=== PATIENT | female | born 2000 ===

== ENCOUNTER 2020-03-10 18:02 | Emergency (ER) | payer MEDICAID, OTHER ==
[~2020-03-10] VITALS: Ht 154 cm; Wt 67.2 kg
--- OUTSIDE RECORDS SUMMARY | 2020-03-10 18:08 | XMS REPORT | Continuity of Care Document ---
Author Organization Unknown Address Unknown Phone Unavailable Allergies There is no data. Medications There is no data. Problems There is no data. Procedures There is no data. Results There is no data. Encounters ACCT No. Visit Date/Time Discharge Status Pt. Type Provider Facility Loc./Unit Complaint [id number] 03/10/2020 18:04:[address] Emergency THOMAS LARES, JEANNINE Gupta [facility] ER SYNCOPE/APPROX 7 WKS PREG
--- NOTE | 2020-03-10 18:15 | NUR ---
RESTING IN BED WITH MOM.
[2020-03-10 18:46] LABS: BASOPHILS % (AUTO) 0 % (0-10); EOSINOPHILS # (AUTO) 0.1 10^3/uL (0.0-0.3); EOSINOPHILS % (AUTO) 1 % (0-10); HEMATOCRIT 35 % (35-52); HEMOGLOBIN 12.1 G/DL (11.5-16.0); LYMPHOCYTES # (AUTO) 2.2 X 10^3 (1.0-4.0); LYMPHOCYTES % (AUTO) 23 % (12-44); MEAN CORPUSCULAR HEMOGLOBIN 28 PG (25-34); MEAN CORPUSCULAR HGB CONC 34 G/DL (32-36); MEAN CORPUSCULAR VOLUME 83 FL (80-99); MEAN PLATELET VOLUME 9.6 FL (7.4-10.4); MONOCYTES # (AUTO) 0.8 X 10^3 (0.0-1.0); MONOCYTES % (AUTO) 9 % (0-12); NEUTROPHILS # (AUTO) 6.5 X 10^3 (1.8-7.8); NEUTROPHILS % (AUTO) 67 % (42-75); PLATELET COUNT 420 10^3/uL (130-400); RED CELL DISTRIBUTION WIDTH 13.7 % (10.0-14.5); WHITE BLOOD COUNT 9.7 10^3/uL (4.3-11.0)
--- NOTE | 2020-03-10 18:51 | NUR ---
REPORT TO ANTHONY
--- NOTE | 2020-03-10 18:58 | ED Syncope ---
General Chief Complaint: Trauma-Non Activation Stated Complaint: SYNCOPE/APPROX 7 WKS PREG Nursing Triage Note: TO ED PER EMS WORKS AT [employer] WAS FOUND FACE DOWN ON FLOOR BY STAFF. ON ARRIVAL UKRAINIAN SPEAKING EMT REPORTS SHE IS APX 7 WEEKS PREG C/O LOW ABD PAIN ON ANTIBIOTIC. SHE DOES REPORT IT MCCORMICK WHEN SHE PEES. C COLLAR IN PLACE. Source of Information: Patient Exam Limitations: No Limitations History of Present Illness Date Seen by Provider: Mar 10, 2020 Time Seen by Provider: 18:10 Initial Comments Here with report of syncopal episode while at work. She is apparently found face down on the floor by staff at work at [email or web address]. She is approximately 7 weeks and complaining of low abdominal pain on the left that is intermittently cramping. She was seen within the last day or 2 at a facility in [place] and found to have urinary tract infection and started on antibiotics. She has not had an ultrasound. She has one previous in which resulted in miscarriage. She has had vaginal spotting over the last 2 days. Does complain of dysuria. She was awake and alert on EMS arrival. Normal vital signs noted by EMS. Arrives in c-collar and complains of left lateral neck/face pain. No obvious swelling or deformity. Timing/Prior Episodes: Single Episode Today (back) Symptoms Prior to Episode: Pain (lower abdomen) Precipitating Factors: Other (abdominal pain) Loss of Consciousness: Unsure (seconds to minutes) Current Symptoms: No Chest Pain, No Headache, No Loss of Bladder Control, No Loss of Bowel Control, No Nausea, No Weakness Allergies and Home Medications Allergies Coded Allergies: No Known Drug Allergies (Unverified , 03/10/20) Patient Home Medication List Home Medication List Reviewed: Yes Review of Systems Constitutional: see HPI; No chills, No fever EENTM: no symptoms reported Respiratory: No dyspnea on exertion, No short of breath Cardiovascular: No chest pain; syncope Gastrointestinal: abdominal pain (LLQ); No nausea, No vomiting Genitourinary: dysuria, pain : Yes Musculoskeletal: no symptoms reported Skin: no symptoms reported Psychiatric/Neurological: No Symptoms Reported Past Zbyeqnm-Nxoluu-Tyqjgm Hx Past Med/Social Hx: Reviewed Nursing Past Med/Soc Hx Patient Social History Alcohol Use: Denies Use Recreational Drug Use: No Smoking Status: Never a Smoker Recent Foreign Travel: No Contact w/Someone Who Travel: No Recent Infectious Disease Expo: No Past Medical History Surgeries: No Respiratory: No Cardiac: No Neurological: No : No Hx : 2 Hx Para: 0 Hx Total # of Abortions (Sp): 1 Reproductive Disorders: Yes (previous miscarriage) Family Medical History Reviewed Nursing Family Hx No Pertinent Family Hx Physical Exam Vital Signs Vital Signs - First Documented 03/10/20 03/10/20 18:02 19:03 Temp 36.5 Pulse 95 Resp 18 B/P (MAP) 105/66 Pulse Ox 98 O2 Delivery Room Air Capillary Refill : Height, Weight, BMI Height: '" Weight: lbs. oz. kg; 28.00 BMI Method: General Appearance: No Apparent Distress, WD/WN HEENT: PERRL/EOMI, Pharynx Normal Neck: Full Range of Motion, Normal Inspection, Non Tender, Supple, Other (C collar removed and nexus criteria negative. No obvious deformity or step-off. Full range of motion. Pain is more to the lateral aspect of the shoulder neck region) Cardiovascular: Regular Rate, Rhythm, No Murmur Respiratory: Lungs Clear, Normal Breath Sounds Gastrointestinal: Non Tender, Soft Back: Normal Inspection, No CVA Tenderness, No Vertebral Tenderness Extremities: Normal Range of Motion, Non Tender Neurologic/Psychiatric: Alert, Oriented x3, No Motor/Sensory Deficits Cranial Nerves: Normal Speech, PERRL Motor/Sensory: No Motor Deficit, No Sensory Deficit, No Pronator Drift Skin: Normal Color, Warm/Dry Progress/Results/Core Measures Results/Orders Lab Results Laboratory Tests Test 03/10/20 18:32 03/10/20 19:10 Range/Units White Blood Count 9.7 4.3-11.0 10^3/uL Red Blood Count 4.27 L 4.35-5.85 10^6/uL Hemoglobin 12.1 11.5-16.0 G/DL Hematocrit 35 35-52 % Mean Corpuscular Volume 83 80-99 FL Mean Corpuscular Hemoglobin 28 25-34 PG Mean Corpuscular Hemoglobin Concent 34 32-36 G/DL Red Cell Distribution Width 13.7 10.0-14.5 % Platelet Count 420 H 130-400 10^3/uL Mean Platelet Volume 9.6 7.4-10.4 FL Neutrophils (%) (Auto) 67 42-75 % Lymphocytes (%) (Auto) 23 12-44 % Monocytes (%) (Auto) 9 0-12 % Eosinophils (%) (Auto) 1 0-10 % Basophils (%) (Auto) 0 0-10 % Neutrophils # (Auto) 6.5 1.8-7.8 X 10^3 Lymphocytes # (Auto) 2.2 1.0-4.0 X 10^3 Monocytes # (Auto) 0.8 0.0-1.0 X 10^3 Eosinophils # (Auto) 0.1 0.0-0.3 10^3/uL Basophils # (Auto) 0.0 0.0-0.1 10^3/uL Sodium Level 135 135-145 MMOL/L Potassium Level 3.8 3.6-5.0 MMOL/L Chloride Level 103 98-107 MMOL/L Carbon Dioxide Level 19 L 21-32 MMOL/L Anion Gap 13 5-14 MMOL/L Blood Urea Nitrogen 7 7-18 MG/DL Creatinine 0.61 0.60-1.30 MG/DL Estimat Glomerular Filtration Rate > 60 BUN/Creatinine Ratio 11 Glucose Level 92 70-105 MG/DL Calcium Level 9.4 8.5-10.1 MG/DL Corrected Calcium 9.2 8.5-10.1 MG/DL Total Bilirubin 0.4 0.1-1.0 MG/DL Aspartate Amino Transf (AST/SGOT) 29 5-34 U/L Alanine Aminotransferase (ALT/SGPT) 60 H 0-55 U/L Alkaline Phosphatase 72 40-136 U/L Total Protein 7.6 6.4-8.2 GM/DL Albumin 4.2 3.2-4.5 GM/DL Human Chorionic Gonadotropin, Quant 04498 H <5 MIU/ML Urine Color YELLOW Urine Clarity CLEAR Urine pH 6.0 5-9 Urine Specific Batson <=1.005 1.016-1.022 Urine Protein NEGATIVE NEGATIVE Urine Glucose (UA) NEGATIVE NEGATIVE Urine Ketones 1+ H NEGATIVE Urine Nitrite NEGATIVE NEGATIVE Urine Bilirubin NEGATIVE NEGATIVE Urine Urobilinogen 0.2 < = 1.0 MG/DL Urine Leukocyte Esterase NEGATIVE NEGATIVE Urine RBC (Auto) NEGATIVE NEGATIVE Urine RBC NONE /HPF Urine WBC NONE /HPF Urine Squamous Epithelial Cells 5-10 /HPF Urine Crystals NONE /LPF Urine Bacteria NEGATIVE /HPF Urine Casts NONE /LPF Urine Mucus NEGATIVE /LPF Urine Culture Indicated NO Urine Opiates Screen NEGATIVE NEGATIVE Urine Oxycodone Screen NEGATIVE NEGATIVE Urine Methadone Screen NEGATIVE NEGATIVE Urine Propoxyphene Screen NEGATIVE NEGATIVE Urine Barbiturates Screen NEGATIVE NEGATIVE Ur Tricyclic Antidepressants Screen NEGATIVE NEGATIVE Urine Phencyclidine Screen NEGATIVE NEGATIVE Urine Amphetamines Screen NEGATIVE NEGATIVE Urine Methamphetamines Screen NEGATIVE NEGATIVE Urine Benzodiazepines Screen NEGATIVE NEGATIVE Urine Cocaine Screen NEGATIVE NEGATIVE Urine Cannabinoids Screen NEGATIVE NEGATIVE My Orders Orders - JEANNINE GUZMAN MD Hydrocodone/Apap 5/325 Tablet (Lortab 5 (03/10/20 20:00) Medications Given in ED Current Medications Medications Dose Ordered Sig/Brit Route Start Time Stop Time Status Last Admin Dose Admin Acetaminophen/ Hydrocodone Bitart 1 tab ONCE ONCE PO 03/10/20 20:00 03/10/20 20:01 DC 03/10/20 20:05 1 TAB Vital Signs/I&O 03/10/20 03/10/20 18:02 19:03 Temp 36.5 Pulse 95 89 Resp 18 16 B/P (MAP) 105/66 97/64 Pulse Ox 98 O2 Delivery Room Air Room Air Progress Progress Note : Progress Note Seen and evaluated. IV, labs and UA ordered. Bedside ultrasound done by me. Uterus appears gravid but no obvious pole noted. Questionable yolk sac. We will check quant and ABO Rh. Monitor patient. 1926: Patient has been up to the bathroom and walked without difficulty. Blood type is O+. Pending UA and quant level. Monitor patient. 1954: I did review all findings with the patient via director of product design line. I did discuss my concerns about threatened miscarriage and the need for formal ultrasound and quick follow-up. Patient verbalize understanding. She is having some cramping now and we will give hydrocodone 5/325 one dose now and a few for home via prescription. Discharged with return precautions. Patient verbalize understanding instructions and agreement with plan. Departure Impression Primary Impression: Threatened miscarriage Additional Impression: Syncope Qualified Codes: R55 - Syncope and collapse Disposition: 01 HOME, SELF-CARE Condition: Stable Departure-Patient Inst. Decision time for Depature: 19:27 Referrals: UNKNOWN (PCP/Family) Primary Care Physician Patient Instructions: Syncope (Fainting), Threatened Miscarriage Add. Discharge Instructions: All discharge instructions reviewed with patient and/or family. Voiced understanding. It is very important that you follow-up with your OB provider on Friday or Angelica. You need ultrasound this week to verify . There is concerns that this is going to result and miscarriage. Your blood type is O+. Continue previously prescribed medications. Return for worse pain, weakness, breathing problems, vaginal bleeding greater than 2 pads per hour for more than 2 hours or other concerns as needed. Drink plenty of fluids. Scripts Hydrocodone/Acetaminophen (Hydrocodone/Acetaminophen 5 MG/325 MG TAB) 1 Each Tablet 1 TAB PO Q4-6HR for Pain MDD 10 TABS for 3 Days, #6 TAB 0 Refills Prov: JEANNINE GUZMAN MD 03/10/20 JEANNINE GUZMAN MD Mar 10, 2020 18:58
[2020-03-10 19:10] LABS: ALANINE AMINOTRANSFERASE 60 U/L (0-55); ALBUMIN 4.2 GM/DL (3.2-4.5); ALKALINE PHOSPHATASE 72 U/L (40-136); BILIRUBIN,TOTAL 0.4 MG/DL (0.1-1.0); BUN/CREATININE RATIO 11; CALCIUM 9.4 MG/DL (8.5-10.1); CARBON DIOXIDE 19 MMOL/L (21-32); CHLORIDE 103 MMOL/L (98-107); CREATININE SERUM 0.61 MG/DL (0.60-1.30); GFR ESTIMATED > 60; GLUCOSE 92 MG/DL (70-105); POTASSIUM 3.8 MMOL/L (3.6-5.0); SODIUM 135 MMOL/L (135-145); TOTAL PROTEIN 7.6 GM/DL (6.4-8.2)
[2020-03-10 19:20] LABS: BILIRUBIN,URINE NEGATIVE (NEGATIVE); CLARITY,URINE CLEAR; COLOR,URINE YELLOW; GLUCOSE, URINE (UA) NEGATIVE (NEGATIVE); KETONES,URINE 1+ (NEGATIVE); LEUKOCYTE ESTERASE ,URINE NEGATIVE (NEGATIVE); NITRITE,URINE NEGATIVE (NEGATIVE); PROTEIN,URINE NEGATIVE (NEGATIVE)
[2020-03-10 19:27] LABS: BACTERIA,URINE NEGATIVE /HPF
[2020-03-10 19:34] LABS: AMPHETAMINE SCREEN, URINE NEGATIVE (NEGATIVE); BARBITURATE SCREEN URINE NEGATIVE (NEGATIVE); BENZODIAZEPINES SCREEN URINE NEGATIVE (NEGATIVE); CANNABINOID SCREEN, URINE NEGATIVE (NEGATIVE); COCAINE SCREEN URINE NEGATIVE (NEGATIVE); METHADONE STAT NEGATIVE (NEGATIVE); METHAMPHETAMINE SCREEN URINE S NEGATIVE (NEGATIVE); OPIATE SCREEN URINE NEGATIVE (NEGATIVE); OXYCODONE STAT NEGATIVE (NEGATIVE); PROPOXYPHENE STAT NEGATIVE (NEGATIVE); TRICYCLIC ANTIDEPRESSANTS SCRE NEGATIVE (NEGATIVE)
[2020-03-10] MEDS ORDERED: HYDROcodone/APAP 5 MG/325 MG (LORTAB) TAB PO ONE (20:00)
[2020-03-10] MEDS ORDERED: HYDR-4226 PO (20:12)
== END 2020-03-10 20:14 | disposition home or self-care (01) ==
LOC: ER 18:04
DX: O20.0 Threatened abortion (principal); O26.891 Other specified pregnancy related conditions, first trimester; R55 Syncope and collapse; Z3A.01 Less than 8 weeks gestation of pregnancy
CPT/HCPCS: 36415; 80053; 80306; 81000; 84702; 85025; 86900; 86901

== ENCOUNTER 2021-03-15 07:04 | Emergency (ER) | payer OTHER, MEDICAID ==
[~2021-03-15] VITALS: Ht 157.4 cm; Wt 69.0 kg
[~2021-03-15 07:04] MED LIST: HYDR-4226 PO
--- NOTE | 2021-03-15 07:20 | ED General ---
General Stated Complaint: FELL History of Present Illness Date Seen by Provider: Mar 15, 2021 Time Seen by Provider: 07:10 Initial Comments Patient is a 20-year-old female who speaks primarily Serbian, who presents to the emergency room by EMS after a mechanical trip and fall this morning while walking into work. Patient apparently tripped on some uneven concrete and fell down onto her left side. Patient is complaining of left lower quadrant abdominal pain and left-sided hip pain. Sales Demonstrator is present at the bedside to help facilitate history and physical examination. Patient denies any other complaints of pain. She is approximately 30 weeks p regnant with a due date in the middle of April. She is a having had 2 prior miscarriages. She is followed by an OB in [facility]. Patient endorses spotting yesterday. She has had bleeding off and on throughout this . She denies any vaginal bleeding this morning. No other pertinent Past medical history. All other review of systems reviewed and negative except as stated. Timing/Duration: 1 Hour Severity: Moderate Modifying Factors: improves with Immobilization; worse with Movement Associated Systoms: Denies Symptoms Allergies and Home Medications Allergies Coded Allergies: No Known Drug Allergies (Unverified , 03/10/20) Home Medications Hydrocodone/Acetaminophen 1 Each Tablet, 1 TAB PO Q4-6HR Prescribed by: JEANNINE GUZMAN on 03/10/202012 Patient Home Medication List Home Medication List Reviewed: Yes Review of Systems Review of Systems Constitutional: see HPI EENTM: no symptoms reported Respiratory: no symptoms reported Cardiovascular: no symptoms reported Gastrointestinal: abdominal pain (left lower quadrant/left flank) Genitourinary: no symptoms reported : Yes Expected Date of Delivery: May 01, 2021 Musculoskeletal: joint pain (left hip pain with ROM) Skin: no symptoms reported All Other Systems Reviewed Negative Unless Noted: Yes Past Inharmk-Wontue-Csxygr Hx Past Medical History Surgeries: No Respiratory: No Cardiac: No Neurological: No Reproductive Disorders: Yes (previous miscarriage) Family Medical History No Pertinent Family Hx Physical Exam Vital Signs Capillary Refill : Height, Weight, BMI Height: '" Weight: lbs. oz. kg; 28.00 BMI Method: General Appearance: No Apparent Distress, WD/WN Eyes: Bilateral Eye Normal Inspection, Bilateral Eye PERRL, Bilateral Eye EOMI HEENT: PERRL/EOMI Neck: Normal Inspection Respiratory: Lungs Clear, Normal Breath Sounds, No Accessory Muscle Use, No Respiratory Distress Cardiovascular: Regular Rate, Rhythm Gastrointestinal: Soft, Tenderness (left flank, left lower quadrant; gravid uterus; fundus palpable about 5 fingerbreafths above the umbilicus) Extremity: Normal Capillary Refill, Normal Inspection, Pelvis Stable, Other (tenderness left lateral hip; limited ROM secondary to pain; intact sensation) Neurologic/Psychiatric: Alert, Oriented x3, No Motor/Sensory Deficits, Normal Mood/Affect, farm management adviser II-XII Norm as Tested Skin: Normal Color, Warm/Dry Progress/Results/Core Measures Suspected Sepsis SIRS Temperature: Pulse: Respiratory Rate: Blood Pressure / Mean: Results/Orders Vital Signs/I&O Capillary Refill : Progress Note : Time: 07:21 Progress Note Patient seen and examined, 20-year-old female who presents to the emergency department today with a chief complaint of left flank/left lower quadrant and left hip pain after a mechanical trip and fall. Evaluation today includes a physical exam. Patient has limited and painful range of motion at the left hip but I do not suspect an acute fracture secondary to her ability to range of motion. Patient has tenderness to the left lateral hip. She has normal distal neurovascular function. She is approximately 33 weeks by estimated date of confinement. She cannot recall her last menstrual cycle. She is followed by OB in [facility]. Patient has heart tones in the 150s. No tenderness over the uterus. Patient is given Tylenol here in the emergency department and sent to labor and delivery for further monitoring of the . Patient states that she has had spotting/vaginal bleeding throughout the entirety of her . She denies any bleeding today. Departure Impression Primary Impression: Abdominal pain Qualified Codes: R10.32 - Left lower quadrant pain Additional Impressions: Third trimester at less than 36 weeks Fall Qualified Codes: W19.XXXA - Unspecified fall, initial encounter Disposition: 01 HOME, SELF-CARE Condition: Stable Departure-Patient Inst. Decision time for Depature: 07:23 Referrals: NO,LOCAL PHYSICIAN (PCP/Family) Primary Care Physician Patient Instructions: Stomach Pain Later in Add. Discharge Instructions: Drink plenty of fluids to stay well-hydrated. Take [id number] Tylenol 2 tablets, every 4-6 hours as needed for pain. Follow-up with your OB provider. We are sending you to labor and delivery today for further evaluation of your . ZULMA LAZO MD Mar 15, 2021 07:20
[2021-03-15] MEDS ORDERED: ACETAMINOPHEN 500 MG TAB (TYLENOL) PO ONE (07:30)
[2021-03-15 07:56] VITALS: BP 112/69
== END 2021-03-15 07:56 | disposition home or self-care (01) ==
LOC: EDUNIT# 07:04 → ER 07:09
DX: O26.893 Other specified pregnancy related conditions, third trimester (principal); R10.32 Left lower quadrant pain; Z3A.30 30 weeks gestation of pregnancy

== ENCOUNTER 2021-03-15 07:22 | Outpatient (CLI) | payer OTHER, MEDICAID ==
[~2021-03-15] VITALS: Ht 162.6 cm; Wt 70.4 kg
[2021-03-15 08:10] VITALS: BP 89/52
[2021-03-15 08:17] LABS: BILIRUBIN,URINE NEGATIVE (NEGATIVE); CLARITY,URINE CLEAR; COLOR,URINE YELLOW; GLUCOSE, URINE (UA) NEGATIVE (NEGATIVE); KETONES,URINE NEGATIVE (NEGATIVE); LEUKOCYTE ESTERASE ,URINE 2+ (NEGATIVE); NITRITE,URINE NEGATIVE (NEGATIVE); PROTEIN,URINE NEGATIVE (NEGATIVE)
[2021-03-15 08:23] LABS: RBC,URINE RARE /HPF
[2021-03-15 08:24] LABS: BACTERIA,URINE MODERATE /HPF
[2021-03-15] MEDS ORDERED: D5 LR IV SOLUTION 1,000 ML IV ONE (08:32)
[2021-03-15] MEDS ORDERED: D5 LR IV SOLUTION 1,000 ML IV SCH (08:45)
[2021-03-15 09:06] LABS: BASOPHILS # (AUTO) 0.1 10^3/uL (0.0-0.1); BASOPHILS % (AUTO) 1 % (0-10); EOSINOPHILS # (AUTO) 0.2 10^3/uL (0.0-0.3); EOSINOPHILS % (AUTO) 2 % (0-10); HEMATOCRIT 28 % (35-52); HEMOGLOBIN 9.3 g/dL (11.5-16.0); LYMPHOCYTES % (AUTO) 20 % (12-44); MEAN CORPUSCULAR HEMOGLOBIN 29 pg (25-34); MEAN CORPUSCULAR HGB CONC 33 g/dL (32-36); MEAN CORPUSCULAR VOLUME 89 fL (80-99); MEAN PLATELET VOLUME 9.1 fL (9.0-12.2); MONOCYTES # (AUTO) 0.9 10^3/uL (0.0-1.0); MONOCYTES % (AUTO) 9 % (0-12); NEUTROPHILS % (AUTO) 68 % (42-75); PLATELET COUNT 401 10^3/uL (130-400); WHITE BLOOD COUNT 10.2 10^3/uL (4.3-11.0)
--- NOTE | 2021-03-15 09:57 | Diagnostic Imaging Report ---
INDICATION: Fell at work TECHNIQUE: Multiple real-time grayscale images were obtained over the gravid uterus. COMPARISON: None FINDINGS: There are no prior studies available for comparison. There is a single live fetus in breech presentation. heart motion was noted and a rate of 156 BPM was recorded. There were no abnormalities identified. The amniotic fluid volume is within normal limits. The placenta is posterior and intact. There is no sign of previa. The growth parameters are fairly uniform. However the estimated weight based on the LMP is only in the 16th percentile. Biometrical measurements are as follows: Biparietal 7.03 cm, age 28 weeks 2 days. Head circumference 26.99 cm, age 29 weeks 4 days. Abdominal circumference 25.37 cm, age 29 weeks 4 days. Femur length 5.57 cm, age 29 weeks 3 days. Sonographic estimate age: 29 weeks 2 days. Sonographic estimated date of delivery: 05/29/2021. Estimated Weight: 1382 gm (+/- 202 gm). LMP percentile: 16%. heart rate: 156 beats per minute. number: 1 of 1. IMPRESSION: 1. There is a single live fetus in breech presentation. The fetus is approximately 29 weeks 2 days gestation +/- 2.5 weeks. The EDC is 05/29/2021. 2. There were no abnormalities identified. 3. The placenta appears intact and there is no sign of an abruption. There is no other acute abnormality identified. 4. The growth parameters are fairly uniform but the estimated weight is only in the 16th percentile. It may prove worthwhile to have a short-term (2-4 week) follow-up exam for further evaluation of the growth. Dictated by: Dictated on workstation # [id number]
--- NOTE | 2021-03-19 08:19 | Physician Query-Final Dx ---
VIET GODOY 03/19/21 0819: Clinic Account Progress/Dx Physician Query: Please give diagnosis Please include # weeks gestation Date of Service Mar 15, 2021 at 07:22 HARSHAD FLORES DO 03/20/21 0829: Clinic Account Progress/Dx DIAGNOSIS: Diagnosis 30 week IUP Fall at work Rh + VIET GODOY March 19, 2021 08:19 HARSHAD FLORES DO March 20, 2021 08:29
== END 2021-03-15 12:15 | disposition home or self-care (01) ==
LOC: LDRP 07:22 → WSo 07:22
PROVIDERS: ATTEND Obstetrics & Gynecology
DX: Z34.93 Encounter for supervision of normal pregnancy, unspecified, third trimester (principal); Z3A.29 29 weeks gestation of pregnancy
CPT/HCPCS: 76805; 81000; 85025; 86850; 86900; 86901; 87088; 96360; 96361; G0463; 36415; 99213